=== PATIENT | male | born 2000 | race African-American/Black ===

== ENCOUNTER → 2022-05-29 | Outpatient (CLI) | payer OTHER ==
[~2022-05-29] MED LIST: PRED20TA PO; VENTAER INH
== END ==
LOC: M CARPUL 09:33
PROVIDERS: ATTEND Physician Assistant
DX: R06.00 Dyspnea, unspecified (principal)

== ENCOUNTER → 2022-08-21 | Outpatient (CLI) | payer OTHER | LOC: M RAD 10:17 | PROVIDERS: ATTEND Internal Medicine Pulmonary Disease | DX: R06.00 Dyspnea, unspecified (principal) ==

== ENCOUNTER 2022-10-08 09:58 | Emergency (ER) | payer OTHER ==
[~2022-10-08] VITALS: Ht 175.3 cm; Wt 88.0 kg
[2022-10-08 09:58] VITALS: BP 130/68; TEMP 97.9; O2SAT 95
[2022-10-08] MEDS ORDERED: ALBUTEROL SULFATE 2.5MG/0.5ML INH NEB SOLN NEB ONE (11:25)
[2022-10-08] MEDS ORDERED: VENTAER INH (11:39)
== END 2022-10-08 12:02 | disposition home or self-care (01) ==
LOC: M ED 09:58
DX: J45.901 Unspecified asthma with (acute) exacerbation (principal); Z79.51 Long term (current) use of inhaled steroids